=== PATIENT | female | born 1970 | race Caucasian/White ===

== ENCOUNTER 2021-10-18 09:40 | Emergency (ER) | payer SELFPAY ==
[~2021-10-18] VITALS: Ht 167.6 cm; Wt 65.9 kg
[2021-10-18 09:53] VITALS: TEMP 99
[2021-10-18] MEDS ORDERED: ASPIRIN 81M81 MG/TA2 PO (09:58)
[2021-10-18] MEDS ORDERED: NITROSTAT0.4 MG/TAB SL (09:59)
[2021-10-18 10:22] LABS: BASO # 0.1 K/mm3 (0.0-0.2); BASO % 0.7 % (0.0-2.0); EOS # 0.9 K/mm3 (0.0-0.7); EOS % 9.4 % (0-4.0); GRAN # 4.5 K/mm3 (1.4-6.5); GRAN % 48.7 % (42.2-75.2); HEMATOCRIT 37.8 % (37.0-47.0); HEMOGLOBIN 13.2 g/dl (12.5-16.0); LYMPH % 32.8 % (20.0-51.0); MEAN CELL VOLUME 94 fl (80.0-100.0); MEAN CORPUSCULAR HEMOGLOBIN 33 pg (27.0-31.0); MEAN CORPUSCULAR HGB CONC 35 g/dl (33.0-37.0); MEAN PLATELET VOLUME 9.5 fl (7.4-10.4); MONO # 0.8 K/mm3 (0.1-0.6); MONO % 8.2 % (1.7-9.3); PLATELET COUNT 257 K/mm3 (130-400); RED BLOOD COUNT 4.03 M/mm3 (4.10-5.30); REDCELL DISTRIBUTION WIDTH-CV 12.6 % (11.5-14.5)
[2021-10-18 10:39] LABS: ALBUMIN 3.9 gm/dL (3.5-5.0); BILIRUBIN,TOTAL 0.5 mg/dL (0.2-1.2); CALCIUM 9.5 mg/dL (8.4-10.2); CREATININE, serum 0.97 mg/dL (0.57-1.11); POTASSIUM 4.2 mmol/L (3.5-4.5); TOTAL PROTEIN 7.2 gm/dL (6.2-8.1)
[2021-10-18 10:45] LABS: TROPONIN-I 0.02 ng/mL (0.00-0.033)
[2021-10-18 12:06] LABS: COLLECTION METHOD CLEAN CATCH
[2021-10-18 12:17] LABS: MUCOUS Present (NOT PRESENT); PH 7 (5-8); URINE APPEARANCE Hazy (CLEAR/HAZY); URINE BACTERIA Rare (NONE SEEN); URINE BILIRUBIN Negative (NEGATIVE); URINE BLOOD 1+ (NEGATIVE); URINE COLOR Yellow (YELLOW); URINE GLUCOSE Negative (NEGATIVE); URINE KETONE Negative (NEGATIVE); URINE LEUKOCYTE ESTERASE 3+ (NEGATIVE); URINE NITRATE Positive (NEGATIVE); URINE PROTEIN(semi-quant) Negative (NEGATIVE); URINE UROBILINOGEN Negative (NEGATIVE)
[2021-10-18] MEDS ORDERED: CEFTIN500 MG PO (12:50)
[2021-10-18 13:08] VITALS: BP 119/76; PULSE 58
== END 2021-10-18 13:08 | disposition home or self-care (01) ==
LOC: COL.ER 09:40
PROVIDERS: Physician Assistant
DX: N39.0 Urinary tract infection, site not specified (principal); R07.9 Chest pain, unspecified; R00.1 Bradycardia, unspecified; R79.1 Abnormal coagulation profile; F17.210 Nicotine dependence, cigarettes, uncomplicated; Z88.0 Allergy status to penicillin; Z79.82 Long term (current) use of aspirin
CPT/HCPCS: J7030; Q9967

== ENCOUNTER 2021-10-23 08:59 | Day surgery (SDC) | payer SELFPAY ==
[~2021-10-23] VITALS: Ht 167.6 cm; Wt 64.4 kg
[2021-10-23] VITALS (10 sets, daily range): BP systolic 111–126; BP diastolic 50–81; PULSE 48–82; TEMP 98.4
[~2021-10-23 08:59] MED LIST: ASPIRIN 81M81 MG/TA2 PO; CEFTIN500 MG PO; NITROSTAT0.4 MG/TAB SL
[2021-10-23] MEDS ORDERED: ATARAX 25MG25 MG/TAB PO (09:39)
[2021-10-23] MEDS ORDERED: CELEXA40 MG PO (09:40)
[2021-10-23] MEDS ORDERED: BUSPAR 30MG30 MG/TAB PO (09:40)
[2021-10-23 10:06] LABS: HEMATOCRIT 37.2 % (37.0-47.0); HEMOGLOBIN 12.2 g/dl (12.5-16.0); MEAN CELL VOLUME 99 fl (80.0-100.0); MEAN CORPUSCULAR HEMOGLOBIN 32 pg (27.0-31.0); MEAN CORPUSCULAR HGB CONC 33 g/dl (33.0-37.0); MEAN PLATELET VOLUME 9.7 fl (7.4-10.4); PLATELET COUNT 268 K/mm3 (130-400); RED BLOOD COUNT 3.77 M/mm3 (4.10-5.30); REDCELL DISTRIBUTION WIDTH-CV 12.4 % (11.5-14.5)
[2021-10-23 10:16] LABS: CALCIUM 9.3 mg/dL (8.4-10.2); CREATININE, serum 0.83 mg/dL (0.57-1.11); INR 1.1 (0.8-3.0); POTASSIUM 3.9 mmol/L (3.5-4.5)
[2021-10-23 10:18] LABS: PARTIAL THROMBOPLASTIN TIME 27.3 SECONDS (26.0-37.0)
--- NOTE | 2021-10-23 10:28 | NUR ---
SEE MERGE FOR ALL MEDICATION ADMINISTRATION TIMES/DOSAGES AND INTRA/POST SEDATION ASSESSMENTS. PRE PROCEDURE ASSESSMENT COMPLETED IN [facility].
[2021-10-23] MEDS ORDERED: IMDUR 30MG30 MG/TAB PO (12:10)
--- NOTE | 2021-10-23 15:05 | NUR ---
Air was removed from TR band in 2ml increments with no bleeding or complication. Rt radial puncture site dressed with folded 2x2 and bandaid. Coban wrap also applied to rt wrist for compression of sub-q nitro injection sites, with instruction to remove coban prior to going to bed this evening, pt expresses understanding. INT DC'd with catheter intact. DC instructions were reviewed and pt expresses understanding. She is steady on feet around room. Pt escorted out to mother's car by wheelchair with personal belongings.
== END 2021-10-23 15:29 | disposition home or self-care (01) ==
LOC: COL.CAR 08:59
PROVIDERS: Internal Medicine Interventional Cardiology
DX: R07.9 Chest pain, unspecified (principal); R94.39 Abnormal result of other cardiovascular function study; R06.02 Shortness of breath; Z79.899 Other long term (current) drug therapy; Z79.82 Long term (current) use of aspirin
CPT/HCPCS: C1769; J1644; J2250; J3010; Q9967